=== PATIENT | female | born 1955 ===

== ENCOUNTER 2022-09-13 09:45 | Inpatient (IN) | payer OTHER ==
[~2022-09-13] VITALS: Ht 152.4 cm; Wt 60.3 kg
[2022-09-13] MEDS ORDERED: PLAVIX75 MG PO (11:06)
[2022-09-13] MEDS ORDERED: JARDIANCE25 MG PO (11:07)
[2022-09-13] MEDS ORDERED: COZAAR50 MG PO (11:07)
[2022-09-13] MEDS ORDERED: SYNTHROID150 MCG PO (11:07)
[2022-09-13] MEDS ORDERED: LIPITOR80 MG PO (11:08)
[2022-09-13] MEDS ORDERED: FENO PO (11:08)
[2022-09-13] MEDS ORDERED: CLONAZEPAM0.5 MG PO (11:09)
[2022-09-13] MEDS ORDERED: RESTORIL15 MG PO (11:09)
[2022-09-13] MEDS ORDERED: HORIZANT300 MG (11:09)
[2022-09-13] MEDS ORDERED: PAMELOR50 M1 PO (11:10)
== END 2022-09-18 08:48 | disposition home or self-care (01) | DRG 376 ==
LOC: SURG 09-16 08:15 → O/R 09-16 08:30 → SURG 09-16 09:45 → SURH 09-16 15:45
PROVIDERS: ADMIT Colon & Rectal Surgery; ATTEND Colon & Rectal Surgery
PROC: 3E0T3BZ Introduction of Anesthetic Agent into Peripheral Nerves and Plexi, Percutaneous Approach (ICD-10-PCS; 2022-09-16)
PROC: 0DBP8ZZ Excision of Rectum, Via Natural or Artificial Opening Endoscopic (ICD-10-PCS; principal; 2022-09-16 08:15)
DX: C20 Malignant neoplasm of rectum (principal)
CPT/HCPCS: 0184T; 64430

== ENCOUNTER 2022-09-28 15:26 | Inpatient (IN) | payer OTHER ==
[~2022-09-28] VITALS: Ht 152.4 cm; Wt 119.7 kg
[~2022-09-28 15:26] MED LIST: CLONAZEPAM0.5 MG PO; COZAAR50 MG PO; FENO PO; HORIZANT300 MG; JARDIANCE25 MG PO; LIPITOR80 MG PO; PAMELOR50 M1 PO; PLAVIX75 MG PO; RESTORIL15 MG PO; SYNTHROID150 MCG PO
[2022-09-30] MEDS ORDERED: CHLORTHALIDONE25 MG (15:43)
[2022-09-30] MEDS ORDERED: GABAPENTIN300 M2 (15:43)
[2022-09-30] MEDS ORDERED: CLOTRIMAZOLE-BE15 G1 (15:43)
[2022-09-30] MEDS ORDERED: FENOFIBRATE160 MG (15:43)
[2022-09-30] MEDS ORDERED: VITAMIN D31250 MCG (15:43)
[2022-09-30] MEDS ORDERED: FUROSEMIDE20 MG (15:43)
== END 2022-10-09 12:09 | disposition home or self-care (01) | DRG 872 ==
LOC: ER 15:26 → ICU-2 21:47 → ICU 10-01 12:49 → SURH 10-02 13:10
PROVIDERS: ADMIT Colon & Rectal Surgery; ATTEND Colon & Rectal Surgery
PROC: BW24YZZ Computerized Tomography (CT Scan) of Chest and Abdomen using Other Contrast (ICD-10-PCS; 2022-09-28)
PROC: 0DJD8ZZ Inspection of Lower Intestinal Tract, Via Natural or Artificial Opening Endoscopic (ICD-10-PCS; principal; 2022-09-30)
PROC: 02HV33Z Insertion of Infusion Device into Superior Vena Cava, Percutaneous Approach (ICD-10-PCS; 2022-10-02)
DX: A41.9 Sepsis, unspecified organism (principal); N39.0 Urinary tract infection, site not specified; K62.5 Hemorrhage of anus and rectum; E87.0 Hyperosmolality and hypernatremia; C20 Malignant neoplasm of rectum; K64.8 Other hemorrhoids; E86.0 Dehydration; B96.1 Klebsiella pneumoniae [K. pneumoniae] as the cause of diseases classified elsewhere; D64.9 Anemia, unspecified; E03.9 Hypothyroidism, unspecified; I10 Essential (primary) hypertension; E87.6 Hypokalemia; G47.33 Obstructive sleep apnea (adult) (pediatric); E11.9 Type 2 diabetes mellitus without complications; Z79.4 Long term (current) use of insulin